=== PATIENT | female | born 1955 | race Caucasian/White ===

== ENCOUNTER 2022-05-13 04:10 | Emergency (ER) | payer MEDICARE ==
[~2022-05-13] VITALS: Ht 157.4 cm; Wt 47.6 kg
[2022-05-13 04:44] LABS: BASO % 0.3 % (0.0-1.0); EOS # 0.1 10*3/uL (0.0-0.4); EOS % 1.6 % (1.0-4.0); HEMATOCRIT 45.1 % (37.0-47.0); LYMPH # 1.5 10*3/uL (1.3-4.4); LYMPH % 24.1 % (27.0-41.0); MEAN CELL VOLUME 94.4 fl (81.0-99.0); MEAN CORPUSCULAR HGB 30.5 pg (27.0-31.0); MEAN CORPUSCULAR HGB CONC 32.4 g/dl (33.0-37.0); MONO # 0.5 10*3/uL (0.1-1.0); MONO % 8.7 % (3.0-9.0); NEUT % 65.1 % (47.0-73.0); PLATELET COUNT AUTOMATED 198 10*3/uL (130-400); RED BLOOD COUNT 4.78 10*6/uL (4.10-5.10); RED CELL DISTRI WIDTH 12.7 % (0-14.5); WHITE BLOOD COUNT 6.2 10*3/uL (4.8-10.8)
[2022-05-13 05:07] LABS: ACETAMINOPHEN (TYLENOL) < 5.0 ug/ml (10-30); ALKALINE PHOSPHATASE 85 U/L (45-117); BUN 13 mg/dl (7-24); CHLORIDE 108 mmol/L (98-107); CPK 125 U/L (26-192); CREATININE 0.76 mg/dL (0.55-1.02); ETHYL ALCOHOL < 3.0 mg/dl (<3); POTASSIUM 3.3 mmol/L (3.5-5.1); SGOT/AST 14 IU/L (3-35); SGPT/ALT 21 U/L (12-78); SODIUM 143 mmol/L (136-145); TOTAL PROTEIN 6.8 gm/dL (6.4-8.2)
[2022-05-13 06:50] LABS: BILIRUBIN Negative (Negative); BLOOD Negative (Negative); CLARITY Clear (Clear); COLOR Yellow (Yellow); GLUCOSE Negative (Negative); KETONE Negative (Negative); LEUKO ESTERASE Negative (Negative); NITRITE Negative (Negative); SPECIFIC GRAVITY 1.015 (1.001-1.030)
[2022-05-13 07:21] LABS: URINE AMPHETAMINES < 1000 (1000ng/ml); URINE BARBITURATES < 200 (200ng/ml); URINE COCAINE < 300 (300ng/ml); URINE METHADONE < 300 (300ng/ml); URINE OPIATES < 300 (300ng/ml)
[2022-05-13 07:28] LABS: BACTERIA TRACE; RBC 0-2 rbc/hpf (0-2); WBC 0-2 wbc/hpf (0-5)
[2022-05-13 07:35] LABS: URINE BENZODIAZEPINES < 200 (200ng/ml); URINE CANNABINOIDS (THC) > 50 (50ng/ml)
[2022-05-13 07:43] LABS: URINE PHENCYCLIDINE < 25 (25ng/ml)
== END 2022-05-13 11:50 ==
LOC: ED 04:10
PROVIDERS: Emergency Medicine
DX: F29 Unspecified psychosis not due to a substance or known physiological condition (principal); Z20.822 Contact with and (suspected) exposure to COVID-19

== ENCOUNTER 2022-05-13 10:11 | Inpatient (IN) | payer MEDICARE ==
[~2022-05-13] VITALS: Ht 160 cm; Wt 42.4 kg
[2022-05-13 12:16] VITALS: BP 148/88
[2022-05-13 20:00] VITALS: BP 145/86
[2022-05-14 07:04] LABS: ALKALINE PHOSPHATASE 68 U/L (45-117); BUN 20 mg/dl (7-24); CHLORIDE 110 mmol/L (98-107); CHOLESTEROL 156 mg/dL (<200); CREATININE 0.87 mg/dL (0.55-1.02); LDL CHOLESTEROL 71 mg/dL (9-159); SGOT/AST 9 IU/L (3-35); SGPT/ALT 16 U/L (12-78); SODIUM 142 mmol/L (136-145); TOTAL PROTEIN 5.8 gm/dL (6.4-8.2); TRIGLYCERIDES 95 mg/dl (<150)
[2022-05-14 07:36] LABS: POTASSIUM 4.4 mmol/L (3.5-5.1)
[2022-05-14 07:45] VITALS: BP 155/85
[2022-05-14 17:02] LABS: BASO % 0.3 % (0.0-1.0); EOS % 0.5 % (1.0-4.0); HEMATOCRIT 45.6 % (37.0-47.0); LYMPH # 1.4 10*3/uL (1.3-4.4); LYMPH % 19.4 % (27.0-41.0); MEAN CORPUSCULAR HGB 31.4 pg (27.0-31.0); MEAN CORPUSCULAR HGB CONC 32.7 g/dl (33.0-37.0); MEAN PLATELET VOLUME 8.2 fl (9.6-12.3); MONO # 0.6 10*3/uL (0.1-1.0); MONO % 8.4 % (3.0-9.0); NEUT # 5.3 10*3/uL (2.3-7.9); NEUT % 71.1 % (47.0-73.0); PLATELET COUNT AUTOMATED 198 10*3/uL (130-400); RED BLOOD COUNT 4.75 10*6/uL (4.10-5.10); RED CELL DISTRI WIDTH 12.7 % (0-14.5); WHITE BLOOD COUNT 7.4 10*3/uL (4.8-10.8)
[2022-05-14 20:00] VITALS: BP 150/80
[2022-05-15 08:09] VITALS: BP 133/69
[2022-05-15 13:18] LABS: VITAMIN D, 25-HYDROXY 31.1 ng/mL (30-100)
[2022-05-15 20:00] VITALS: BP 116/62
[2022-05-16 08:00] VITALS: BP 138/87
[2022-05-16 20:00] VITALS: BP 120/71
[2022-05-17 07:43] VITALS: BP 140/71
[2022-05-17 20:00] VITALS: BP 132/66
[2022-05-17 23:14] LABS: BUN 30 mg/dl (7-24); CHLORIDE 108 mmol/L (98-107); CREATININE 0.69 mg/dL (0.55-1.02); SODIUM 144 mmol/L (136-145)
[2022-05-18 04:06] LABS: RHEUMATOID FACTOR <10.0 IU/mL (<14.0)
[2022-05-18 07:29] VITALS: BP 132/66
[2022-05-18 20:00] VITALS: BP 142/88
[2022-05-19 07:31] VITALS: BP 119/65
[2022-05-19 20:00] VITALS: BP 139/63
[2022-05-20 07:30] VITALS: BP 134/65
[2022-05-20 20:00] VITALS: BP 122/62
[2022-05-21 07:22] VITALS: BP 136/70
[2022-05-21 20:00] VITALS: BP 157/71
[2022-05-22 07:57] VITALS: BP 144/69
[2022-05-22 20:00] VITALS: BP 137/75
[2022-05-23 09:00] VITALS: BP 133/75
[2022-05-23 19:07] LABS: BUN 29 mg/dl (7-24); CHLORIDE 106 mmol/L (98-107); CREATININE 0.98 mg/dL (0.55-1.02); POTASSIUM 4.3 mmol/L (3.5-5.1); SODIUM 142 mmol/L (136-145)
[2022-05-23 20:02] VITALS: BP 152/61
[2022-05-24 08:00] VITALS: BP 136/77
[2022-05-24 19:17] VITALS: BP 140/63
[2022-05-25 08:00] VITALS: BP 124/84
[2022-05-25 20:00] VITALS: BP 136/69
[2022-05-26 07:09] VITALS: BP 155/90
[2022-05-26 20:00] VITALS: BP 167/71
[2022-05-27 07:21] VITALS: BP 145/63
[2022-05-27 20:00] VITALS: BP 147/72
[2022-05-28 07:06] VITALS: BP 147/72
[2022-05-28 20:00] VITALS: BP 131/59
[2022-05-29 07:22] VITALS: BP 134/69
[2022-05-29 20:00] VITALS: BP 132/65
[2022-05-30 07:08] LABS: BASO % 0.5 % (0.0-1.0); EOS # 0.2 10*3/uL (0.0-0.4); EOS % 3.4 % (1.0-4.0); HEMATOCRIT 41.6 % (37.0-47.0); LYMPH # 1.3 10*3/uL (1.3-4.4); LYMPH % 21.6 % (27.0-41.0); MEAN PLATELET VOLUME 8.3 fl (9.6-12.3); MONO # 0.8 10*3/uL (0.1-1.0); MONO % 13.7 % (3.0-9.0); NEUT # 3.7 10*3/uL (2.3-7.9); NEUT % 59.7 % (47.0-73.0); PLATELET COUNT AUTOMATED 201 10*3/uL (130-400); RED BLOOD COUNT 4.29 10*6/uL (4.10-5.10); WHITE BLOOD COUNT 6.1 10*3/uL (4.8-10.8)
[2022-05-30 07:11] VITALS: BP 145/67
[2022-05-30 07:29] LABS: BUN 26 mg/dl (7-24); CHLORIDE 105 mmol/L (98-107); CREATININE 0.71 mg/dL (0.55-1.02); POTASSIUM 4.3 mmol/L (3.5-5.1); SODIUM 139 mmol/L (136-145)
[2022-05-30 20:00] VITALS: BP 148/80
[2022-05-31 07:21] VITALS: BP 140/87
[2022-05-31 20:00] VITALS: BP 140/71
[2022-06-01 08:00] VITALS: BP 144/76
[2022-06-01 20:00] VITALS: BP 126/71
[2022-06-02 08:00] VITALS: BP 135/82
[2022-06-02 20:00] VITALS: BP 135/61
[2022-06-03] MEDS ORDERED: B121000 MCG/1 IM (07:23)
[2022-06-03] MEDS ORDERED: NICODERM CQ1 EAC2 T (07:23)
[2022-06-03] MEDS ORDERED: INVEGA SUSTENN156 MG IM (07:23)
[2022-06-03] MEDS ORDERED: VITAMIN D350 MC2 PO (07:53)
[2022-06-03 08:24] VITALS: BP 104/70
== END 2022-06-03 10:00 | DRG 885 ==
LOC: 3N 10:11
PROVIDERS: Family Medicine; Internal Medicine; Registered Nurse; ADMIT Psychiatry & Neurology Psychiatry; ATTEND Psychiatry & Neurology Psychiatry
PROC: 0HBRXZZ Excision of Toe Nail, External Approach (ICD-10-PCS; principal; 2022-05-15)
PROC: 0HBRXZZ Excision of Toe Nail, External Approach (ICD-10-PCS; 2022-05-15)
PROC: 0HBRXZZ Excision of Toe Nail, External Approach (ICD-10-PCS; 2022-05-15)
PROC: 0HBRXZZ Excision of Toe Nail, External Approach (ICD-10-PCS; 2022-05-15)
PROC: 0HBRXZZ Excision of Toe Nail, External Approach (ICD-10-PCS; 2022-05-15)
PROC: 0HBRXZZ Excision of Toe Nail, External Approach (ICD-10-PCS; 2022-05-15)
PROC: 0HBRXZZ Excision of Toe Nail, External Approach (ICD-10-PCS; 2022-05-15)
PROC: 0HBRXZZ Excision of Toe Nail, External Approach (ICD-10-PCS; 2022-05-15)
PROC: 0HBRXZZ Excision of Toe Nail, External Approach (ICD-10-PCS; 2022-05-15)
PROC: 0HBRXZZ Excision of Toe Nail, External Approach (ICD-10-PCS; 2022-05-15)
PROC: GZ56ZZZ Individual Psychotherapy, Supportive (ICD-10-PCS; 2022-05-16)
DX: F25.0 Schizoaffective disorder, bipolar type (principal); F12.929 Cannabis use, unspecified with intoxication, unspecified; E44.1 Mild protein-calorie malnutrition; Z68.1 Body mass index [BMI] 19.9 or less, adult; F29 Unspecified psychosis not due to a substance or known physiological condition; E87.6 Hypokalemia; E87.8 Other disorders of electrolyte and fluid balance, not elsewhere classified; E53.8 Deficiency of other specified B group vitamins; R73.9 Hyperglycemia, unspecified; F12.90 Cannabis use, unspecified, uncomplicated; I10 Essential (primary) hypertension; F17.210 Nicotine dependence, cigarettes, uncomplicated; B35.1 Tinea unguium; N63.10 Unspecified lump in the right breast, unspecified quadrant; F41.1 Generalized anxiety disorder; F43.10 Post-traumatic stress disorder, unspecified; Z59.00 Homelessness unspecified; Z78.9 Other specified health status; I25.2 Old myocardial infarction; Z98.890 Other specified postprocedural states; Z71.6 Tobacco abuse counseling

== ENCOUNTER 2022-05-19 12:49 | Emergency (ER) | payer MEDICARE ==
[2022-05-19 13:15] LABS: BASO % 0.4 % (0.0-1.0); EOS # 0.1 10*3/uL (0.0-0.4); EOS % 1.1 % (1.0-4.0); HEMATOCRIT 42.4 % (37.0-47.0); LYMPH # 1.4 10*3/uL (1.3-4.4); LYMPH % 19.2 % (27.0-41.0); MEAN CORPUSCULAR HGB 31.1 pg (27.0-31.0); MEAN CORPUSCULAR HGB CONC 32.1 g/dl (33.0-37.0); MEAN PLATELET VOLUME 8.5 fl (9.6-12.3); MONO # 0.6 10*3/uL (0.1-1.0); MONO % 8.8 % (3.0-9.0); NEUT % 70.1 % (47.0-73.0); PLATELET COUNT AUTOMATED 174 10*3/uL (130-400); RED BLOOD COUNT 4.37 10*6/uL (4.10-5.10); RED CELL DISTRI WIDTH 12.9 % (0-14.5); WHITE BLOOD COUNT 7.1 10*3/uL (4.8-10.8)
[2022-05-19 13:36] LABS: CREATININE 1.18 mg/dL (0.55-1.02); POTASSIUM 4.5 mmol/L (3.5-5.1); TOTAL PROTEIN 6.2 gm/dL (6.4-8.2)
[2022-05-19 13:56] LABS: BILIRUBIN Negative (Negative); BLOOD Negative (Negative); CLARITY Clear (Clear); COLOR Yellow (Yellow); GLUCOSE Negative (Negative); KETONE Negative (Negative); LEUKO ESTERASE Negative (Negative); NITRITE Negative (Negative); UROBILINOGEN 0.2 E.U./dl (0.0-1.0)
[2022-05-19 14:14] LABS: BACTERIA TRACE; EPITHELIAL CELLS 0-2; WBC 0-2 wbc/hpf (0-5)
[2022-05-19 14:15] LABS: HYALINE CAST 0-2
== END 2022-05-19 15:07 ==
LOC: ED 12:49
PROVIDERS: Family Medicine
DX: N17.0 Acute kidney failure with tubular necrosis (principal); F17.200 Nicotine dependence, unspecified, uncomplicated